=== PATIENT | male | born 1995 | race Caucasian/White ===

== ENCOUNTER 2016-12-09 20:15 | Emergency (ER) | payer BC ==
[2016-12-09 21:27] VITALS: BP 110/74
[2016-12-09] MEDS ORDERED: Oseltamivir CAP* 75 MG PO ONE (21:47)
--- NOTE | 2016-12-09 21:54 | UC ---
FLU HPI - HPI Summary HPI Summary: SECOND DAY OF FEVER COUGH BODYACHES. NO FLU SHOT. NO SORE THROAT. NO RASHES. NO ABDOMINAL PAIN. NO NAUSEA OR VOMITING - History of Current Complaint Chief Complaint: UCRespiratory Stated Complaint: FEVER Time Seen by Provider: 12/09/16 21:25 Hx Obtained From: Patient Onset/Duration: Sudden Onset, Lasting Days, Still Present Severity Currently: Mild Severity Initially: Mild Associated Signs & Symptoms: Positive: F/C, Myalgia, Cough - Allergy/Home Medications Allergies/Adverse Reactions: Allergies Allergy/AdvReac Type Severity Reaction Status Date / Time No Known Allergies Allergy Unverified 12/09/16 21:27 PMH/Surg Hx/FS Hx/Imm Hx Previously Healthy: Yes Endocrine History Of: Denies: Diabetes, Thyroid Disease Cardiovascular History Of: Denies: Cardiac Disorders, Hypertension Respiratory History Of: Reports: Asthma Denies: COPD GI/ History Of: Denies: Ulcer - Surgical History Surgical History: Yes Surgery Procedure, Year, and Place: 1999 Tonsillectomy - Family History Known Family History: Positive: Hypertension - Social History Occupation: Employed Full-time Lives: With Family Alcohol Use: None Substance Use Type: None Smoking Status (MU): Never Smoked Tobacco - Immunization History Vaccination Up to Date: Yes Review of Systems Constitutional: Fever, Chills Skin: Negative Eyes: Negative ENT: Negative Respiratory: Cough Cardiovascular: Negative Gastrointestinal: Negative Genitourinary: Negative Motor: Negative Neurovascular: Negative Musculoskeletal: Arthralgia, Myalgia Neurological: Negative Psychological: Negative All Other Systems Reviewed And Are Negative: Yes Physical Exam Triage Information Reviewed: Yes Appearance: No Pain Distress, Well-Nourished, Ill-Appearing Vital Signs: Initial Vital Signs Temp 100.1 F 12/09/16 21:23 Pulse 73 12/09/16 21:23 Resp 18 12/09/16 21:23 BP 110/74 12/09/16 21:23 Pulse Ox 99 12/09/16 21:23 Vital Signs Reviewed: Yes Eye Exam: Normal ENT Exam: Normal ENT: Positive: Normal ENT inspection, Hearing grossly normal, Pharynx normal, TMs normal Dental Exam: Normal Neck exam: Normal Neck: Positive: Supple, Nontender, No Lymphadenopathy Respiratory Exam: Normal Respiratory: Positive: Chest non-tender, Lungs clear, Normal breath sounds, No respiratory distress, No accessory muscle use Cardiovascular Exam: Normal Cardiovascular: Positive: RRR, No Murmur, Pulses Normal Abdominal Exam: Normal Abdomen Description: Positive: Nontender, No Organomegaly Musculoskeletal Exam: Normal Neurological Exam: Normal Psychological Exam: Normal Skin Exam: Normal Flu Course/Dx - Differential Dx/Diagnosis Differential Diagnosis/HQI/PQRI: Influenza Provider Diagnoses: INFLUENZA Discharge - Discharge Plan Condition: Stable Disposition: HOME Prescriptions: Oseltamivir CAP* [Tamiflu CAP*] 75 mg PO BID #10 cap Patient Education Materials: Influenza (ED) Referrals: Jack Varela MD [Primary Care Provider] -
== END 2016-12-09 21:58 | disposition home or self-care (01) ==
LOC: UCEAST 20:15
DX: J11.1 Influenza due to unidentified influenza virus with other respiratory manifestations (principal)
CPT/HCPCS: 87502; 99212; A9270-GY; G0463

== ENCOUNTER 2017-04-24 21:20 | Emergency (ER) | payer BC ==
[2017-04-24 21:31] VITALS: BP 114/78
--- NOTE | 2017-04-24 21:59 | RAD ---
INDICATION: Right hand injury COMPARISON: April 29, 2016 TECHNIQUE: AP, lateral, and oblique views were obtained. FINDINGS: The bony structures, joint spaces, and soft tissues are normal for age. IMPRESSION: NO ACUTE FRACTURE.
--- NOTE | 2017-04-24 22:29 | UC ---
Hand/Wrist HPI - HPI Summary HPI Summary: PT PUNCHED HIS TRUCK TODAY WITH CLOSED FIST AND THEN AGAIN WITH OPEN PALM. HAS ABRASION TO PALM, PAIN 4TH AND 5TH FINGERS AND PAIN WITH MOVEMENT. HAS BRUISING TO FOREARM. UP TO DATE VACCINATIONS. - History Of Current Complaint Chief Complaint: UCLaceration Stated Complaint: HAND INJURY AND LAC Hx Obtained From: Patient, Family/Industrial Paramedic - SISTER AND GF Onset/Duration: Sudden Onset, Lasting Hours, Still Present Severity Initially: Moderate Severity Currently: Moderate Pain Intensity: 4 Pain Scale Used: 0-10 Numeric Character Of Pain: Sharp, Aching Aggravating Factor(s): Movement Alleviating: Rest Associated Signs And Symptoms: Positive: Swelling, Bruising Related History: Dominant Hand Right - Allergies/Home Medications Allergies/Adverse Reactions: Allergies Allergy/AdvReac Type Severity Reaction Status Date / Time No Known Allergies Allergy Unverified 12/09/16 21:27 Home Medications: Home Medications Ibuprofen [Advil] 400 mg PO 04/24/17 [History] PMH/Surg Hx/FS Hx/Imm Hx Respiratory History: Asthma - Surgical History Surgical History: Yes Surgery Procedure, Year, and Place: 1999 Tonsillectomy - Family History Known Family History: Positive: Hypertension - Social History Alcohol Use: Occasionally Substance Use Type: None Smoking Status (MU): Smoker, Current Status Unknown - Immunization History Vaccination Up to Date: Yes Review of Systems Constitutional: Negative Skin: Bruising, Other - ABRASION Respiratory: Negative Cardiovascular: Negative Gastrointestinal: Negative Musculoskeletal: Arthralgia, Decreased ROM, Edema All Other Systems Reviewed And Are Negative: Yes Physical Exam Triage Information Reviewed: Yes Appearance: Well-Appearing, No Pain Distress, Well-Nourished Vital Signs: Initial Vital Signs Temp 98.0 F 04/24/17 21:21 Pulse 46 04/24/17 21:21 Resp 18 04/24/17 21:21 BP 114/78 04/24/17 21:21 Pulse Ox 98 04/24/17 21:21 Vital Signs Reviewed: Yes Eyes: Positive: Conjunctiva Clear ENT: Positive: Hearing grossly normal Neck: Positive: Supple Respiratory: Positive: No respiratory distress, No accessory muscle use Cardiovascular: Positive: Pulses Normal Abdomen Description: Positive: Soft Musculoskeletal: Positive: ROM Limited @ - RIGHT HAND, Edema @ - MINIMAL EDEMA RIGHT HAND Neurological: Positive: Alert Psychological: Positive: Normal Response To Family, Age Appropriate Behavior Skin: Positive: Other - ABRASION RIGHT PALM Diagnostics - Radiology RIGHT HAND XRAY Xray Interpretation: No Acute Changes Radiology Interpretation Completed By: Radiologist Hand/Wrist Course/Dx - Course Course Of Treatment: SPOKE TO DR. ANDERSON (RADIOLOGY) AND CONFIRMED NEGATIVE READ. PT DECLINES BURKE WRAP. ENCOURAGED TO USE BURKE DURING SLEEP AND WITH ACTIVITY FOR PROTECTION AND SUPPORT. OTC MEDS NEEDED FOR DISCOMFORT. FOLLOW- UP WITH PCP OR ORTHO IF NOT IMPROVING EXPECTED. - Differential Dx/Diagnosis Provider Diagnoses: 1. RIGHT HAND CONTUSION. 2. RIGHT HAND ABRASION Discharge - Discharge Plan Condition: Stable Disposition: HOME Patient Education Materials: Contusion in Adults (ED), Abrasion (ED) Referrals: Jack Varela MD [Primary Care Provider] - If Needed Mitzi Tomlinson MD [Medical Doctor] - If Needed Additional Instructions: XRAY TODAY NEGATIVE FOR FRACTURE OR DISLOCATION PER RADIOLOGY READ. CONTUSION: Your injury has resulted in a contusion -- a crushing of the deep tissues. No injury to important structures was detected during the physician's exam. Contusions vary in the amount of pain they cause, and in the length of time required for healing. Typically, the area will become bruised, and will remain painful to touch for two or three weeks. However, most patients are back to working and playing within a few days. After the initial period of rest and cold-packs, your symptoms (together with the doctor's recommendations) will determine how rapidly you can get back to full activity. Usually this means "do what feels okay, but don't do things that hurt." If re-examination was recommended, it's important to follow up as instructed. Call the doctor or return any time if pain increases, if swelling becomes severe, if you develop numbness or weakness in an injured extremity, or if any other alarming symptoms occur. ABRASIONS: An abrasion is a scraping injury of the skin. Some scarring may result. The seriousness of an abrasion is not always obvious at first. Hidden tissue damage may be present and infection may occur despite proper care. Complete healing may take from ten days to as long as a month. The healing time depends on the depth of the abrasion, and on the amount of crushing of underlying tissues from the injury. Keep the wound and dressing clean. Do not shower or bathe the area until okayed by the doctor. If the dressing gets wet, remove it and blot the wound dry, then reapply a clean dressing. Dressings should be changed every day. Sunscreen should be used for six months after the skin is healed. If any signs of infection occur (swelling, redness, increasing tenderness, red streaks, profuse purulent drainage from the abrasion, tender lumps in the armpit or groin above the abrasion, or fever), see the doctor immediately. IF YOUR SYMPTOMS DO NOT IMPROVE EXPECTED OVER THE NEXT 1-2 WEEKS FOLLOW-UP WITH ORTHO.
== END 2017-04-24 22:40 | disposition home or self-care (01) ==
LOC: UCEAST 21:20
DX: Z72.0 Tobacco use (principal); S60.511A Abrasion of right hand, initial encounter; W22.8XXA Striking against or struck by other objects, initial encounter; Y93.9 Activity, unspecified; Y92.9 Unspecified place or not applicable; Y99.9 Unspecified external cause status
CPT/HCPCS: 99211; G0463

== ENCOUNTER 2017-05-17 22:23 | Emergency (ER) | payer BC ==
[2017-05-18] MEDS ORDERED: cefTRIAXone VIAL(*) 250 MG VIAL IM ONE (00:34)
[2017-05-18] MEDS ORDERED: DOXYcycline CAP(*) 100 MG PO ONE (00:35)
[2017-05-18 01:53] VITALS: BP 114/80
--- NOTE | 2017-05-18 03:30 | ED ---
Leila Ley Rebecca, scribed for Broderick Spaulding MD on 05/17/17 at 2321 . GI/ HPI - HPI Summary HPI Summary: Pt is a 21 y/o M who presents to ED c/o L testicular pain. Pain began suddenly at 2100 tonight while doing dishes and has been constant since onset. Pain is currently moderate, ranked 6/10. Sx aggravated by palpation and contraction, alleviated by standing up. Denies lumps in the groin, penile discharge, difficulty urinating, vomiting and back pain. 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 Occur "every once in awhile" and they usually spontaneously alleviated in a half an hour, but this time it is not resolved. Has never seen a urologist. - History of Current Complaint Chief Complaint: EDGeneral Time Seen by Provider: 05/17/17 23:20 Stated Complaint: TESTICULAR PAIN Hx Obtained From: Patient Onset/Duration: Started Hours Ago, Still Present Timing: Constant Current Severity: Moderate Pain Intensity: 6 Additional Locations for Males: Testicles Associated Signs and Symptoms: Positive: Negative. Negative: Vomiting Additional Signs & Symptoms: Negative: Penile Discharge Aggravating Factor(s): Palpation Alleviating Factor(s): Position - Standing - Allergy/Home Medications Allergies/Adverse Reactions: Allergies Allergy/AdvReac Type Severity Reaction Status Date / Time No Known Allergies Allergy Unverified 12/09/16 21:27 PMH/Surg Hx/FS Hx/Imm Hx Endocrine/Hematology History: Denies: Hx Diabetes, Hx Thyroid Disease Cardiovascular History: Denies: Hx Hypertension Respiratory History: Reports: Hx Asthma Denies: Hx Chronic Obstructive Pulmonary Disease (COPD) GI History: Denies: Hx Ulcer History: Reports: Other Problems/Disorders - Hx testicular torsion - Surgical History Surgery Procedure, Year, and Place: 1999 Tonsillectomy Infectious Disease History: No Infectious Disease History: Denies: Hx Hepatitis, Hx Human Immunodeficiency Virus (HIV), Traveled Outside the [place] in Last 30 Days - Family History Known Family History: Positive: Hypertension - Social History Alcohol Use: None Substance Use Type: Reports: None Smoking Status (MU): Never Smoked Tobacco Review of Systems Negative: Vomiting Positive: other - L testicular pain; Negative lumps in the groin, penile discharge and difficulty urinating Positive: Other - Denies back pain All Other Systems Reviewed And Are Negative: Yes Physical Exam - Summary Physical Exam Summary: The patient is well-nourished in no acute distress and in no acute pain. The skin is warm and dry and skin color reflects adequate perfusion. HEENT: The head is normocephalic and atraumatic. The pupils are equal and reactive. The conjunctivae are clear and without drainage. Nares are patent and without drainage. Mouth reveals moist mucous membranes and the throat is without erythema and exudate. The external ears are intact. The ear canals are patent and without drainage. The tympanic membranes are intact. Neck is supple with full range of motion and non-tender. There are no carotid bruits. There is no neck vein distension. Respiratory: Chest is non-tender. Lungs are clear to auscultation and breath sounds are symmetrical and equal. Cardiovascular: Hear is regular rate and rhythm. There is no murmur or rub auscultated. There is no peripheral edema and pulses are symmetrical and equal. Abdomen: The abdomen is soft and non-tender. There are normal bowel sounds heard in all four quadrants and there is no organomegaly palpated. Genital: Bilateral inguinal adenopathy. Circumcised. R testicle is descended and nontender. L testicle is tender in the epididymis. Feels like he possibly has a hernia or hydrocele in the testicle. Normal color and texture. Not high riding. Musculoskeletal: There is no back pain noted. Extremities are non-tender with full range of motion. Neurological: Patient is alert and oriented to person, place and time. The patient has symmetrical motor strength in all four extremities. Cranial nerves are grossly intact. Deep tendon reflexes are symmetrical and equal in all four extremities. Psychiatric: The patient has an appropriate affect and does not exhibit any anxiety or depression. Triage Information Reviewed: Yes Vital Signs On Initial Exam: Initial Vitals Temp Pulse Resp BP Pulse Ox 98.7 F 87 18 115/81 97 05/17/17 22:27 05/17/17 22:27 05/17/17 22:27 05/17/17 22:27 05/17/17 22:27 Vital Signs Reviewed: Yes Diagnostics - Vital Signs Vital Signs Temp Pulse Resp BP Pulse Ox 05/17/17 22:47 98.7 F 87 16 115/81 100 05/17/17 22:27 98.7 F 87 18 115/81 97 - Laboratory Lab Statement: Any lab studies that have been ordered have been reviewed, and results considered in the medical decision making process. - Ultrasound No standard instances Ultrasound Interpretation: Positive (See Comments) - Tesitcular US: Mild left epididymitis. Small right hydrocele. Mild bilateral microlithiasis. Suggest six- month followup exam to ensure stability. Ultrasound Interpretation Completed By: Radiologist Re-Evaluation - Re-Evaluation First Eval Re-Evaluation Time: 00:32 Comment: Discussed US results with the pt. GIGU Course/Dx - Course Assessment/Plan: Pt is a 21 y/o M who presents to ED c/o sudden onset L testicular pain since 2100 tonight. Sx aggravated by palpation and contraction, alleviated by standing up. Denies lumps in the groin, penile discharge, difficulty urinating, vomiting and back pain. 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 Occur "every once in awhile" and they usually spontaneously alleviated in a half an hour, but this time it is not resolved. Has never seen a urologist.Testicular US reveals "Tesitcular US: Mild left epididymitis. Small right hydrocele. Mild bilateral microlithiasis." In the ED course, he receivied Rocephin and Vibramycin. He will be D/C to home with Dx of L epididymitis and Rx for Doxycycline 100 mg BID for 10 days. He understands and agrees. - Diagnoses Differential Diagnoses - Male: Epididymitis, STD, Testicular Torsion, Urinary Tract Infection Provider Diagnoses: Left epididymitis Discharge - Discharge Plan Condition: Stable Disposition: HOME Prescriptions: DOXYcycline CAP(*) [DOXYcycline 100MG CAP(*)] 100 mg PO BID #20 cap Patient Education Materials: Epididymitis (ED) Referrals: [facility] [place] PHYSICIAN REFERRAL [Outside] - 3 Days The documentation as recorded by the Leila luis Rebecca accurately reflects the service I personally performed and the decisions made by me, Broderick Spaulding MD.
--- NOTE | 2017-05-18 07:40 | RAD ---
INDICATION: Left ventricular pain. COMPARISON: There are no prior studies available for comparison. TECHNIQUE: Multiple real-time images of the testicles were obtained including color Doppler images and Doppler tracings. FINDINGS: The testicles are normal in size and shape. There are bilateral scattered microcalcifications. The right testicle measured 4.8 x 2.8 x 3.2 cm and the left testicle measured 4.4 x 2.5 x 2.5 cm. No intratesticular mass is seen. There is symmetric vascular flow within both testicles. The left epididymis is mildly enlarged and heterogeneous with increased blood flow suggestive of epididymitis. There appears be a small left varicocele. IMPRESSION: 1. FINDINGS MOST CONSISTENT WITH LEFT EPIDIDYMITIS. 2. SMALL LEFT VARICOCELE. 3. BILATERAL TESTICULAR MICROLITHIASIS.
== END 2017-05-18 01:03 | disposition home or self-care (01) ==
LOC: ED 22:23
DX: N45.1 Epididymitis (principal); J45.909 Unspecified asthma, uncomplicated
CPT/HCPCS: 76870; 96372; 99282; A9270-GY; J0696

== ENCOUNTER → 2017-05-29 13:46 | Emergency (ER) | payer BC ==
[~2017-05-29 13:46] MED LIST: Ketorolac INJ* 30 MG/ML 1 ML VIAL IV ONE; Metoclopramide IV* 5 MG/ML 2 ML VIAL IV ONE; NS 0.9% 1000 ML* 2,000 ML IV ONE; Rizatriptan (NF) 5 MG TAB PO ONE; diPHENhydraMINE IV* 50 MG/ML 1 ml VIAL (BENADRYL) IV ONE; fentaNYL* 50 MCG/ML 2 ML VIAL (100 MCG VIAL) IV SLOW PU ONE
[2017-05-29 15:08] LABS: Hematocrit 43 % (42-52); Hemoglobin 14.4 g/dl (14.0-18.0); Mean Corpuscular HGB Conc 33 g/dl (31-36); Mean Corpuscular Hemoglobin 30 pg (27-31); Mean Corpuscular Volume 91 fL (80-94); Mean Platelet Volume 10 um3 (7.4-10.4); Red Blood Count 4.73 10^6/ul (4.0-5.4); Red Cell Distribution Width 13 % (10.5-15); White Blood Count 6.3 10^3/ul (3.5-10.8)
[2017-05-29 15:10] LABS: Urine Bilirubin Negative (Negative); Urine Glucose Negative (Negative); Urine Nitrite Negative (Negative)
[2017-05-29 15:19] LABS: Albumin 4.7 g/dL (3.2-5.2); BUN/Creatinine Ratio 15.4 (8-20); Calcium 9.5 mg/dL (8.6-10.3); EGFR African American 163.2 (>60); EGFR Non-African American 126.9 (>60); Globulin 2.4 g/dL (2-4); Potassium 3.6 mmol/L (3.5-5.0); Total Bilirubin 0.7 mg/dL (0.2-1.0); Total Protein 7.1 g/dL (6.4-8.9)
[2017-05-29 15:56] LABS: Erythrocyte Sed Rate 4 mm/Hr (0-14)
[2017-05-29 17:39] VITALS: BP 106/70
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
== END | disposition home or self-care (01) ==
LOC: ED 13:46
DX: G43.909 Migraine, unspecified, not intractable, without status migrainosus (principal); R20.0 Anesthesia of skin; H53.489 Generalized contraction of visual field, unspecified eye; J45.909 Unspecified asthma, uncomplicated
CPT/HCPCS: 36415; 80053; 81003; 82375; 85025; 85652; 96374; 96375; 99283; J1200; J1885; J2765; J3010

== ENCOUNTER 2017-06-08 01:35 | Emergency (ER) | payer BC ==
[2017-06-08] MEDS ORDERED: LORazepam INJ* 2 MG/ML 1 ML VIAL IV PUSH ONE (01:57)
[2017-06-08] MEDS ORDERED: Metoclopramide IV* 5 MG/ML 2 ML VIAL IV ONE (01:57)
[2017-06-08] MEDS ORDERED: NS 0.9% 1000 ML* 1,000 ML IV ONE ×2 (01:57→03:15)
[2017-06-08] MEDS ORDERED: diPHENhydraMINE IV* 50 MG/ML 1 ml VIAL (BENADRYL) IV ONE (01:57)
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
[2017-06-08] MEDS ORDERED: Morphine INJ* 2 MG/ML 1 ML SYRINGE IV ONE (03:15)
[2017-06-08 04:43] VITALS: BP 107/55
== END 2017-06-08 04:45 | disposition home or self-care (01) ==
LOC: ED 01:35
DX: R51 Headache (principal)
CPT/HCPCS: 96374; 96375; 99282; J1200; J2060; J2765

== ENCOUNTER 2017-07-09 18:30 | Inpatient (IN) | payer BC, OTHER ==
--- NOTE | 2017-07-09 19:30 | RAD ---
Indication: Right ankle injury. 3 views of the right ankle are reviewed. There is a lucency going obliquely from the medial malleolus extending to the tibial plafond as well as in the distal fibula although no soft tissue swelling is noted. Possibility of soft tissue injury should be considered. Underlying fracture is not totally excluded. IMPRESSION: Lucency in the distal fibula and the medial malleolus is noted however no adjacent soft tissue swelling is noted. This may be secondary to soft tissue laceration. A nondisplaced fracture is not totally excluded.
[2017-07-09] MEDS: Morphine INJ* 4 MG/ML 1 ML CARPUJECT IV ONE ×2 (19:31→20:32)
[2017-07-09] MEDS ORDERED: NS 0.9% 1000 ML* 1,000 ML IV ONE (19:32)
[2017-07-09] MEDS ORDERED: Ondansetron INJ* 2 MG/ML VIAL IV ONE (19:32)
[2017-07-09] MEDS ORDERED: ceFAZolin 1 GM VIAL(*) 1 GM in NS 0.9% 50 ML* 50 ML IVPB ONE (19:32)
[2017-07-09] MEDS ORDERED: ceFAZolin 1 GM* X ONE DOSE IVPB ×2 (20:00)
[2017-07-09] MEDS ORDERED: Morphine INJ* 4 MG/ML 1 ML CARPUJECT ONE (20:28)
[2017-07-09] MEDS ORDERED: Morphine INJ* 4 MG/ML 1 ML CARPUJECT IV ONE (20:32)
--- NOTE | 2017-07-09 21:05 | RAD ---
Indication: Right ankle injury. CT of the right ankle was obtained in the axial plane. Sagittal and coronal reconstructed images were obtained. The calcaneus and talus appears to be intact. There is a fracture of the medial malleolus extending from the medial metaphysis into the mid tibial plafond as well as a comminuted fracture of the distal fibula and lateral malleolus. Subcutaneous air is noted likely due to skin wound. There appears to be intra-articular air noted in the subtalar joint. No significant soft tissue edema is noted. IMPRESSION: Oblique fractures of the medial malleolus extending into the mid tibial plafond as well as a comminuted fracture of the distal fibula. Subcutaneous air is noted. Additionally air extends into the subtalar joint.
[2017-07-09] MEDS ORDERED: ceFAZolin 1 GM in Dextrose (*) 1 GM/50 ML BAG IVPB ONE (22:03)
[2017-07-09] MEDS ORDERED: Ketorolac INJ* 30 MG/ML 1 ML VIAL ONE (22:05)
[2017-07-09] MEDS ORDERED: Propofol* 10 MG/ML 20 ML BTL IV PUSH ONE (22:05)
[2017-07-09] MEDS ORDERED: fentaNYL* 50 MCG/ML 2 ML VIAL (100 MCG VIAL) ONE (22:05)
[2017-07-09] MEDS ORDERED: KETAMINE HCL* 50 MG/ML 10 ML VIAL ONE (22:05)
[2017-07-09] MEDS ORDERED: Lidocaine 2% PF * 5 ML VIAL ONE (22:05)
[2017-07-09] MEDS ORDERED: Ondansetron INJ* 2 MG/ML VIAL ONE (22:05)
[2017-07-09] MEDS ORDERED: Dexamethasone IV* 4 MG/ML 1 ML (4 MG) ONE (22:05)
[2017-07-09] MEDS ORDERED: Midazolam* 1 MG/ML 5 ML VIAL (5 MG) ONE (22:05)
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
[2017-07-09] MEDS ORDERED: HYDROmorphone INJ* 1 MG/ML CARPUJECT SYRINGE ONE (23:58)
[2017-07-09] MEDS ORDERED: fentaNYL* 50 MCG/ML 2 ML VIAL (100 MCG VIAL) IV PRN (23:59)
[2017-07-09] MEDS ORDERED: HYDROmorphone INJ* 1 MG/ML CARPUJECT SYRINGE IV PRN (23:59)
[2017-07-09] MEDS ORDERED: Ondansetron INJ* 2 MG/ML VIAL IV PRN (23:59)
[2017-07-10] MEDS ORDERED: fentaNYL* 50 MCG/ML 2 ML VIAL (100 MCG VIAL) ONE (00:12)
[2017-07-10] MEDS ORDERED: Bupivacaine 0.25% SDV* 30 ML ONE ×2 (00:37→00:40)
[2017-07-10] MEDS ORDERED: Magnesium Hydroxide LIQ* 30 ML UDC PO PRN (01:08)
[2017-07-10] MEDS ORDERED: Ondansetron INJ* 2 MG/ML VIAL IV PRN (01:08)
[2017-07-10] MEDS ORDERED: traZODone TAB* 50 MG TAB PO PRN (01:08)
[2017-07-10] MEDS ORDERED: oxyCODONE/Acetamin 5/325 MG* TAB PO PRN (01:08)
[2017-07-10] MEDS ORDERED: Polyethylene Glycol 3350* 17 GM PACKET PO PRN (01:08)
[2017-07-10] MEDS ORDERED: oxyCODONE TAB* 5 MG TAB PO PRN (01:08)
--- NOTE | 2017-07-10 01:22 | PN ---
Progress Note - Progress Note Date of Service: 07/10/17 SOAP: The patient is now S/P ORIF and washout of R ankle for tx of open fracture. He is admitted to the floor for 48 hours of abx. Usual abx protocol is not being followed due to increase risk of infection with an open fracture. Plan is to discharge to home after 48 hours of IV abx.
[2017-07-10] MEDS ORDERED: Rizatriptan 10 MG TAB PO PRN (02:00)
[2017-07-10] MEDS ORDERED: oxyCODONE/Acetamin 5/325 MG* TAB ONE (03:02)
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
[2017-07-10] MEDS: ceFAZolin 1 GM in Dextrose (*) 1 GM/50 ML BAG IVPB SCH ×3 (06:14→22:56)
[2017-07-10] MEDS ORDERED: ceFAZolin 1 GM VIAL(*) 1 GM in NS 0.9% 50 ML* 50 ML IVPB SCH (06:30)
[2017-07-10] MEDS: Acetaminophen TAB* 325 MG PO PRN ×2 (06:45→12:52)
[2017-07-10] MEDS: Enoxaparin(*) 40 MG/0.4 ML SYR SUBCUT SCH (11:37)
--- NOTE | 2017-07-10 14:26 | PN ---
Progress Note - Progress Note Date of Service: 07/10/17 SOAP: Subjective: [Pt is doing well. Pain is controlled. Denies CP/SOB or F/C Objective: 21 y/o WDWN M NAD, A&Ox3 RLE- splint cdi, able F/E toes, full ROM knee, SILT distally Vital Signs Temp Pulse Resp BP Pulse Ox 99.7 F 59 18 86/43 97 07/10/17 07:25 07/10/17 08:25 07/10/17 11:37 07/10/17 08:25 07/10/17 08:25 Assessment: POD 1 ORIF R ankle and washout for tx of open fracture Plan: cont IV abx x 48 hours post op TTWB RLE with use of crutches keep splint dry and intact DVT prophylaxis- lovenox DC IV fluids DC to home after abx complete, likely tu morning F/U 10-14 days post op, DC on ASA
--- NOTE | 2017-07-10 14:36 | RAD ---
INDICATION: ORIF RIGHT ankle. COMPARISON: July 09, 2017 radiographs. TECHNIQUE: 35 seconds fluoroscopy. FINDINGS: Spot images document placement of a medial cortical plate and multiple fixation screws across the medial malleolus fracture with resulting anatomic alignment. IMPRESSION: Procedural fluoroscopy. CPT II Codes: 6045F
[2017-07-10] MEDS ORDERED: Butalb/Acetamin/Caff TAB* 1 TAB PO PRN (16:04)
[2017-07-10] MEDS ORDERED: Ondansetron ODT TAB* 4 MG PO PRN (16:05)
[2017-07-10] MEDS: oxyCODONE/Acetamin 5/325 MG* TAB PO PRN ×2 (17:16→21:15)
[2017-07-10] MEDS: Verapamil TAB* 80 MG PO SCH (21:15)
[2017-07-10] MEDS: Morphine INJ* 2 MG/ML 1 ML SYRINGE (TWO MG - NEW SYRINGE VERSION) IV PRN (23:59)
[2017-07-11] MEDS: oxyCODONE/Acetamin 5/325 MG* TAB PO PRN ×5 (04:24→22:30)
[2017-07-11] MEDS: ceFAZolin 1 GM in Dextrose (*) 1 GM/50 ML BAG IVPB SCH ×3 (06:26→22:30)
[2017-07-11] MEDS: Morphine INJ* 2 MG/ML 1 ML SYRINGE (TWO MG - NEW SYRINGE VERSION) IV PRN ×3 (07:18→20:18)
[2017-07-11] MEDS: diPHENhydraMINE IV* 50 MG/ML 1 ml VIAL (BENADRYL) IV PRN ×2 (07:20→14:25)
[2017-07-11] MEDS: Verapamil TAB* 80 MG PO SCH ×3 (09:07→22:29)
--- NOTE | 2017-07-11 11:46 | PN ---
Progress Note - Progress Note Date of Service: 07/11/17 SOAP: Subjective: POD 2 ORIF R ankle and washout for tx of open fracture. Patient reports pain controlled with PO and morphine. Patient has no questions/ complaints. Objective: General- Well appearing, NAD AO -MSK- L LE: Surgical splint intact, no drainage, + E/F of toes without difficulty, cap refill <2 secs. sensation grossly intact. Active Medications Generic Name Dose Route Start Last Admin Trade Name Freq PRN Reason Stop Dose Admin Acetaminophen 650 mg 07/10/17 01:08 07/10/17 12:52 Tylenol Tab* PO 650 mg Q4H PRN Administration PAIN OR TEMPERATURE Acetaminophen/Butalbital/Caffeine 1 tab 07/10/17 16:04 Fioricet Tab* PO Q8HR PRN HEADACHE Diphenhydramine HCl 25 mg 07/10/17 01:08 07/11/17 07:20 Benadryl Iv* IV 25 mg Q6H PRN Administration itching Enoxaparin Sodium 40 mg 07/10/17 12:00 07/10/17 11:37 Lovenox(*) SUBCUT 40 mg Q24H DON Administration Cefazolin Sodium/Dextrose 1 gm in 50 mls @ 200 mls/hr 07/10/17 06:30 06:26 Kefzol 1 Gm In Dextrose Duplex (*) IVPB 07/11/17 22:44 200 mls/hr Q8H DON Administration Magnesium Hydroxide 30 ml 07/10/17 01:08 Milk Of Magnesia Liq* PO Q6H PRN constipation Morphine Sulfate 2 mg 07/10/17 01:08 07/11/17 11:04 Morphine Inj (Syringe)* IV 2 mg Q2H PRN Administration PAIN - SEVERE Ondansetron HCl 4 mg 07/10/17 01:08 Zofran Inj* IV Q6H PRN nausea Ondansetron HCl 4 mg 07/10/17 16:05 Zofran Odt Tab* PO Q6H PRN NAUSEA Oxycodone HCl 10 mg 07/10/17 01:08 07/10/17 11:37 Roxycodone Tab* PO 10 mg Q4H PRN Administration PAIN - MODERATE TO SEVERE Oxycodone/Acetaminophen 1 tab 07/10/17 01:08 Percocet 5/325 Tab* PO Q4H PRN PAIN Oxycodone/Acetaminophen 2 tab 07/10/17 01:08 07/11/17 09:06 Percocet 5/325 Tab* PO 2 tab Q4H PRN Administration PAIN Polyethylene Glycol/Electrolytes 17 gm 07/10/17 01:08 Miralax* PO DAILY PRN Constipation Rizatriptan Benzoate 10 mg 07/10/17 02:00 Maxalt-Cardiac Monitor (Nf) PO ONCE PRN MIGRAINE HEADACHE Protocol Trazodone HCl 25 mg 07/10/17 01:08 Desyrel Tab* PO BEDTIME PRN insomnia Verapamil HCl 80 mg 07/10/17 21:00 07/11/17 11:22 Calan Tab* PO Not Given BID DON Assessment: POD 2 ORIF R ankle and washout for tx of open fracture Plan: - Continue IV ABX for 48 hours total. - Continue PT/ OT - Pain management- discussed with patient decreasing IV pain medication throughout day and increasing PO if necessary Vital Signs Temp 97.6 F 07/11/17 11:02 Pulse 71 07/11/17 11:02 Resp 16 07/11/17 11:06 BP 98/55 07/11/17 11:02 Pulse Ox 98 07/11/17 11:02 Intake & Output 07/10/17 07/11/17 07/11/17 18:59 06:59 18:59 Intake Total 2273 1065 Output Total 1200 0 0 Balance 1073 1065 0 Intake: IV Fluids 1223 47 ABX - CEFAZOLIN 108 LR 1115 47 IVPB 58 ABX - CEFAZOLIN 58 Oral 1050 960 Output: Urine 1200 0 0 Other: Estimated Void Medium # Bowel Movements 0 # Voids 1 <Joycelyn Constantino - Last Filed: 07/11/17 11:44> - Progress Note SOAP: Doing well. IV antibiotics for 48 hours postop and then d/c home. <Velasquez Osman - Last Filed: 07/11/17 12:31>
[2017-07-11] MEDS: Enoxaparin(*) 40 MG/0.4 ML SYR SUBCUT SCH (12:24)
[2017-07-12] MEDS: oxyCODONE/Acetamin 5/325 MG* TAB PO PRN ×2 (06:13→12:01)
[2017-07-12 06:17] LABS: Hematocrit 36 % (42-52); Hemoglobin 11.9 g/dl (14.0-18.0); Mean Platelet Volume 10 um3 (7.4-10.4)
[2017-07-12 06:47] LABS: EGFR African American 165.6 (>60); EGFR Non-African American 128.8 (>60)
--- NOTE | 2017-07-12 08:17 | PN ---
Progress Note - Progress Note Date of Service: 07/12/17 SOAP: Subjective: The patient is doing well. Pain is controlled. Denies calf pain, CP/SOB or F/C. Objective: 21 y/o WDWN M NAD, A&Ox3, RLE- splint c/d/i, full pain free ROM of knee, sensation intact to light touch distally Vital Signs Temp Pulse Resp BP Pulse Ox 98.5 F 56 15 93/41 98 07/12/17 03:36 07/12/17 03:36 07/12/17 06:59 07/12/17 03:36 07/12/17 04:41 Laboratory Results - last 24 hr 07/12/17 07/12/17 05:29 05:29 Hgb 11.9 L Hct 36 L Plt Count 191 MPV 10 BUN 8 Creatinine 0.77 Est GFR ( Amer) 165.6 Est GFR (Non-Af Amer) 128.8 Assessment: POD 3 s/p ORIF right ankle and washout for treatment of open fx Plan: DC to home today, done with 48 hrs of IV abx TTWB with crutches Percocet for pain ASA for DVT propylaxis F/U with Dr. Osman 10-14 days post op
[2017-07-12] MEDS: Verapamil TAB* 80 MG PO SCH (08:45)
[2017-07-12 11:14] VITALS: BP 102/58
[2017-07-12] MEDS: Enoxaparin(*) 40 MG/0.4 ML SYR SUBCUT SCH (12:03)
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
== END 2017-07-12 13:15 | disposition home or self-care (01) | DRG 313 ==
LOC: ED 18:30 → OR 21:11 → SSU 07-10 02:45
PROVIDERS: ADMIT Orthopaedic Surgery Hand Surgery; ATTEND Orthopaedic Surgery Hand Surgery
PROC: 0QSG04Z Reposition Right Tibia with Internal Fixation Device, Open Approach (ICD-10-PCS; principal; 2017-07-10)
PROC: 0JBN0ZZ Excision of Right Lower Leg Subcutaneous Tissue and Fascia, Open Approach (ICD-10-PCS; 2017-07-10)
DX: S82.231B Displaced oblique fracture of shaft of right tibia, initial encounter for open fracture type I or II (principal); N44.00 Torsion of testis, unspecified; J45.909 Unspecified asthma, uncomplicated; S82.401B Unspecified fracture of shaft of right fibula, initial encounter for open fracture type I or II; G43.909 Migraine, unspecified, not intractable, without status migrainosus; Z82.49 Family history of ischemic heart disease and other diseases of the circulatory system; V29.88XA Motorcycle rider (driver) (passenger) injured in other specified transport accidents, initial encounter; Z72.89 Other problems related to lifestyle; Y92.9 Unspecified place or not applicable
CPT/HCPCS: 36415; 76001; 82565; 84520; 85014; 85018; 85049; A9270-GY; C1713; C1776; J0690; J1100; J1170; J1200; J1650; J1885; J2250; J2270; J2405; J2704; J3010

== ENCOUNTER 2017-09-23 11:33 | Emergency (ER) | payer BC ==
[2017-09-23] MEDS ORDERED: Metoclopramide IV* 5 MG/ML 2 ML VIAL IV ONE (12:02)
[2017-09-23] MEDS ORDERED: diPHENhydraMINE IV* 50 MG/ML 1 ml VIAL (BENADRYL) IV ONE (12:02)
[2017-09-23] MEDS ORDERED: Ketorolac INJ* 30 MG/ML 1 ML VIAL IV ONE (12:02)
[2017-09-23] MEDS ORDERED: NS 0.9% 1000 ML* 2,000 ML IV ONE (12:02)
[2017-09-23] MEDS ORDERED: Acetaminophen TAB* 325 MG PO ONE (12:02)
[2017-09-23 12:21] LABS: Hematocrit 40 % (42-52); Hemoglobin 13.7 g/dl (14.0-18.0); Mean Corpuscular HGB Conc 34 g/dl (31-36); Mean Corpuscular Hemoglobin 31 pg (27-31); Mean Corpuscular Volume 90 fL (80-94); Mean Platelet Volume 9 um3 (7.4-10.4); Red Blood Count 4.47 10^6/ul (4.0-5.4); Red Cell Distribution Width 13 % (10.5-15); White Blood Count 10.4 10^3/ul (3.5-10.8)
[2017-09-23 12:40] LABS: Albumin 4.6 g/dL (3.2-5.2); BUN/Creatinine Ratio 17.6 (8-20); Calcium 9.4 mg/dL (8.6-10.3); EGFR African American 171.7 (>60); EGFR Non-African American 133.5 (>60); Globulin 2.6 g/dL (2-4); Potassium 3.6 mmol/L (3.5-5.0); Total Bilirubin 0.4 mg/dL (0.2-1.0); Total Protein 7.2 g/dL (6.4-8.9)
[2017-09-23 14:24] LABS: Erythrocyte Sed Rate 7 mm/Hr (0-14)
[2017-09-23 15:59] VITALS: BP 98/55
--- NOTE | 2017-09-23 16:01 | CONSULT ---
Subjective Date of Service: 09/23/17 Interval History: Mr. Rodgers is a 22 yo male with PMH significant for migraines who is followed by neurology. Pt reports that he follows with Dr. Jensen with Neurology for his migraines and has an appointment in a few months. Migraine started at 0800 this AM and has associated symptoms of nausea, photophobia and phonaphobia. He reports not drinking or eating today due to being at work. He took his AM dose of Verapamil this AM. Denies fever, chills, lightheadedness or dizziness, shortness of breath, chest discomfort, V/D. Pt reports sore throat and runny nose with cough that started 3-4 days ago. Last migraine prior to this one was last week. While in the ED he received 2L NS, IV Benadryl, IV Reglan, Tylenol and Toradol. He was noted to be hypotensive with systolic BPs in the 80's. He was found to asymptomatic. The Hospitalists were asked to consult on the patient regarding his hypotension. Orthostatic VS where obtained. BP laying 91/76, sitting 90/48 , and standing 87/61. No complaints of lightheadedness or dizziness. His headache was improving. 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 Family History: Findings - Denies family HX CAD and Cancer. Reports DM in father and paternal side of family Social History: Findings - Denies tobacco or rec. drug use. Occational ETOH. Past Medical History: Findings - Migraines, HX pelvix fx, S/P tonsillectomy, S/ P release right foot compartment syndrome, S/P ORIF right ankle Review of Systems - Measurements Intake and Output: Intake and Output Last 24 Hours 09/21/17 09/22/17 09/23/17 09/24/17 06:59 06:59 06:59 06:59 Intake Total 1999 Balance 1999 Weight 130 lb Intake: IV Fluids 1999 - Review of Systems General Comments: Well nourished, NAD Dermatology: Positive: Normal HEENT: Positive: Normal Eyes: Positive: Normal Thyroid: Positive: Normal Pulmonary: Positive: Cough Negative: Shortness of Breath Cardiology: Positive: Normal Negative: Chest Pain, Shortness of Breath, Faintness, Syncope Gastroenterology: Positive: Normal, Nausea Negative: Abdominal Pain, Vomiting, Constipation Endocrinology: Positive: Normal Neurology: Positive: Migraines Negative: Dizziness Psychiatry: Positive: Normal Objective Additional Medications: Home Medications: 1. Zofran ODT 4 mg SL Q6H PRN nausea. 2. Verapamil 80 mg PO in AM and 160 mg in PM. 3. Motrin 600 mg PO Q6H PRN pain. 4. Fioricet 1 tab PO Q8H PRN migraine. Allergies: No known drug allergies Vital Signs 09/23/17 09/23/17 09/23/17 11:49 11:56 11:57 Temperature 98.9 F Pulse Rate 72 64 Respiratory 18 Rate Blood Pressure 108/72 109/55 (mmHg) O2 Sat by Pulse 98 98 Oximetry 09/23/17 09/23/17 09/23/17 12:00 12:30 13:00 Temperature Pulse Rate 60 56 62 Respiratory Rate Blood Pressure 98/56 82/39 (mmHg) O2 Sat by Pulse 98 99 97 Oximetry 09/23/17 09/23/17 09/23/17 13:30 14:00 14:30 Temperature Pulse Rate 62 55 56 Respiratory Rate Blood Pressure 89/37 81/35 84/26 (mmHg) O2 Sat by Pulse 97 98 97 Oximetry 09/23/17 14:42 Temperature Pulse Rate Respiratory Rate Blood Pressure 82/44 (mmHg) O2 Sat by Pulse Oximetry Oxygen Devices in Use Now: None Appearance: NAD, laying on stretcher Ears/Nose/Mouth/Throat: Mucous Membranes Moist Respiratory: Symmetrical Chest Expansion and Respiratory Effort, Clear to Auscultation Cardiovascular: NL Sounds; No Murmurs; No JVD, RRR Abdominal: NL Sounds; No Tenderness; No Distention Extremities: No Edema Skin: No Rash or Ulcers Neurological: Alert and Oriented x 3, NL Muscle Strength and Tone Lines/Tubes/Other Access: Clean, Dry and Intact Peripheral IV - site benign Nutrition: Taking PO's Result Diagrams: 09/23/17 12:11 09/23/17 12:11 Assessment/Plan - Billing Mr. Rodgers is 22 yo male with PMH significant for migraines who presented to the emergency room with complaints of a migraine and was found to be hypotensive. Plan By Medical Problem: 1. Hypotension. I suspect this is secondary to the Benadryl in received in the ED, in addition to the Verapamil he takes daily for his Migraines. He also reports not eating or drinking today. He is currently asymptomatic and is not orthostatic. He can be discharged to home from the ED. 2. Migraines. His headache is improving. I recommend that he follow-up with Dr. Jensen if he continues to have breakthrough headaches. VTE PPX: Ambulate Diet: Regular Code Status: Full code Admission Status and Rationale: Mr. Rodgers will be discharge to home from the Emergency Room, he has been encouraged to establish with a PCP. Attending: Seymour Galvez
--- NOTE | 2017-09-24 07:56 | ED ---
Abad Ley Angela, scribed for Dyllan Christina MD on 09/23/17 at 1203 . Headache - HPI Summary HPI Summary: This pt is a 22 y/o male accompanied by his mother [facility] [place] headache since this morning at 0800. He reports the last time he had this headache was last week. Pt additionally c/o nausea, photophobia, and phonophobia. He denies fever. Pt notes some cough and rhinorrhea. Pt has been sleeping well and eating well. He notes normal fluid intake. PMHx includes migraine. Pt takes Verapamil for migraines but notes it has not been working recently. Per mother, pt had recent surgery for a fractured right ankle. - History Of Current Complaint Chief Complaint: EDHeadache Stated Complaint: HEADACHE Time Seen by Provider: 09/23/17 11:57 Hx Obtained From: Patient Onset/Duration: Sudden Onset, Started hours ago, Still Present Timing: Hours Character: Migraine Associated Signs And Symptoms: Nausea, Other (Noted In Comments) - POS: photophobia, phonophobia. NEG: fever - Allergies/Home Medications Allergies/Adverse Reactions: Allergies Allergy/AdvReac Type Severity Reaction Status Date / Time No Known Allergies Allergy Verified 06/28/17 12:49 Home Medications: Home Medications Verapamil TAB* [Calan TAB*] 160 mg PO QPM 09/23/17 [History Confirmed 09/23/17] PMH/Surg Hx/FS Hx/Imm Hx Endocrine/Hematology History: Denies: Hx Diabetes, Hx Thyroid Disease Cardiovascular History: Denies: Hx Hypertension, Hx Pacemaker/ICD Respiratory History: Reports: Hx Asthma Denies: Hx Chronic Obstructive Pulmonary Disease (COPD) GI History: Denies: Hx Ulcer History: Reports: Other Problems/Disorders - Hx testicular torsion Sensory History: Denies: Hx Contacts or Glasses, Hx Hearing Aid Opthamlomology History: Denies: Hx Contacts or Glasses Neurological History: Reports: Hx Migraine Psychiatric History: Denies: Hx Panic Disorder - Surgical History Surgery Procedure, Year, and Place: 1999 Tonsillectomy;. RIGHT FOOT COMPARTMENT SYNDROME; Infectious Disease History: No Infectious Disease History: Denies: Hx Hepatitis, Hx Human Immunodeficiency Virus (HIV), Traveled Outside the [place] in Last 30 Days - Family History Known Family History: Positive: Hypertension, Diabetes - Social History Alcohol Use: Occasionally Substance Use Type: Reports: None Smoking Status (MU): Never Smoked Tobacco Review of Systems Negative: Fever, Chills Positive: Photophobia ENT: Other - phonophobia Positive: Nasal Discharge Positive: Cough Positive: Nausea Genitourinary: Negative Musculoskeletal: Negative Skin: Negative Positive: Headache All Other Systems Reviewed And Are Negative: Yes Physical Exam - Summary Physical Exam Summary: VITAL SIGNS: Reviewed. GENERAL: Patient is a well-developed and nourished male who is lying comfortable in the stretcher. Patient is not in any acute respiratory distress. HEAD AND FACE: No signs of trauma. No ecchymosis, hematomas or skull depressions. No sinus tenderness. EYES: PERRLA, EOMI x 2, No injected conjunctiva, no nystagmus. EARS: Hearing grossly intact. Ear canals and tympanic membranes are within normal limits. MOUTH: Oropharynx within normal limits. NECK: Supple, trachea is midline, no adenopathy, no JVD, no carotid bruit, no c- spine tenderness, neck with full ROM. CHEST: Symmetric, no tenderness at palpation LUNGS: Clear to auscultation bilaterally. No wheezing or crackles. CVS: Regular rate and rhythm, S1 and S2 present, no murmurs or gallops appreciated. ABDOMEN: Soft, non-tender. No signs of distention. No rebound no guarding, and no masses palpated. Bowel sounds are normal. EXTREMITIES: FROM in all major joints, no edema, no cyanosis or clubbing. NEURO: Alert and oriented x 3. No acute neurological deficits. Speech is normal and follows commands. SKIN: Dry and warm Triage Information Reviewed: Yes Vital Signs On Initial Exam: Initial Vitals Temp Pulse Resp BP Pulse Ox 98.9 F 72 18 108/72 98 09/23/17 11:49 09/23/17 11:49 09/23/17 11:49 09/23/17 11:49 09/23/17 11:49 Vital Signs Reviewed: Yes Diagnostics - Vital Signs Vital Signs Temp Pulse Resp BP Pulse Ox 09/23/17 11:49 98.9 F 72 18 108/72 98 - Laboratory Lab Results: Lab Results 09/23/17 09/23/17 09/23/17 Range/Units 12:11 12:11 12:28 WBC 10.4 (3.5-10.8) 10^3/ul RBC 4.47 (4.0-5.4) 10^6/ul Hgb 13.7 L (14.0-18.0) g/dl Hct 40 L (42-52) % MCV 90 (80-94) fL MCH 31 (27-31) pg MCHC 34 (31-36) g/dl RDW 13 (10.5-15) % Plt Count 275 (150-450) 10^3/ul MPV 9 (7.4-10.4) um3 Neut % (Auto) 73.2 (38-83) % Lymph % (Auto) 17.9 L (25-47) % [place] % (Auto) 7.9 (1-9) % Eos % (Auto) 0.4 (0-6) % Baso % (Auto) 0.6 (0-2) % Absolute Neuts (auto) 7.6 (1.5-7.7) 10^3/ul Absolute Lymphs (auto) 1.9 (1.0-4.8) 10^3/ul Absolute Monos (auto) 0.8 (0-0.8) 10^3/ul Absolute Eos (auto) 0 (0-0.6) 10^3/ul Absolute Basos (auto) 0.1 (0-0.2) 10^3/ul Absolute Nucleated RBC 0 10^3/ul Nucleated RBC % 0 ESR 7 (0-14) mm/Hr Carbon Monoxide Screen < 4 (<4.0) % Sodium 138 (133-145) mmol/L Potassium 3.6 (3.5-5.0) mmol/L Chloride 103 (101-111) mmol/L Carbon Dioxide 25 (22-32) mmol/L Anion Gap 10 (2-11) mmol/L BUN 13 (6-24) mg/dL Creatinine 0.74 (0.67-1.17) mg/dL Est GFR ( Amer) 171.7 (>60) Est GFR (Non-Af Amer) 133.5 (>60) BUN/Creatinine Ratio 17.6 (8-20) Glucose 88 (70-100) mg/dL Calcium 9.4 (8.6-10.3) mg/dL Total Bilirubin 0.40 (0.2-1.0) mg/dL AST 22 (13-39) U/L ALT 22 (7-52) U/L Alkaline Phosphatase 82 (34-104) U/L Total Protein 7.2 (6.4-8.9) g/dL Albumin 4.6 (3.2-5.2) g/dL Globulin 2.6 (2-4) g/dL Albumin/Globulin Ratio 1.8 (1-3) Result Diagrams: 09/23/17 12:11 09/23/17 12:11 Lab Statement: Any lab studies that have been ordered have been reviewed, and results considered in the medical decision making process. Headache Course/Dx - Course Assessment/Plan: This pt is a 22 y/o male accompanied by his mother [facility] [place] migraine headache since this morning at 0800. He reports the last time he had this headache was last week. Pt additionally c/o nausea, photophobia , and phonophobia. He denies fever. Pt notes some cough and rhinorrhea. Pt has been sleeping well and eating well. He notes normal fluid intake. PMHx includes migraine. Pt takes Verapamil for migraines but notes it has not been working recently. Per mother, pt had recent surgery for a fractured right ankle. Test results without any significant abnormalities. The pt was hypotensive; therefore the pt was given 2 liters of fluids. He was also given Tylenol, Benadryl, Toradol and Reglan and his headache resolved. Dr. Galvez, hospitalist and JOSE Lu consulted for the patient and they agree the pt can be discharge home with follow up from PCP. They report the pt s symptom of hypotension is probably related to the Benadryl. Pt is alert and oriented x3. Pt has no orthostatic hypotension and is asymptomatic. Therefore, he will be discharge home and will follow up with his PCP. - Diagnoses Differential Diagnosis/HQI/PQRI: Migraine, Sinus Headache, Tension Headache Provider Diagnoses: Migraine headache Discharge - Discharge Plan Condition: Stable Disposition: HOME Patient Education Materials: Migraine Headache (ED) Forms: *Work Release Referrals: [facility] PHYSICIAN REFERRAL [Outside] Additional Instructions: Please follow up with your primary care provider. If you do not have a primary, please establish one by calling the [facility] Physician Referral. RETURN TO THE ED FOR ANY WORSENING OR NEW SYMPTOMS. The documentation as recorded by the Abad luis Angela accurately reflects the service I personally performed and the decisions made by me, Dyllan Christina MD.
== END 2017-09-23 16:00 | disposition home or self-care (01) ==
LOC: ED 11:33
DX: G43.909 Migraine, unspecified, not intractable, without status migrainosus (principal)
CPT/HCPCS: 36415; 80053; 82375; 85025; 85652; 96360; 96374; 96375; 99283; A9270-GY; J1200; J1885; J2765

== ENCOUNTER 2018-05-09 13:57 | Emergency (ER) | payer BC, OTHER ==
[2018-05-09 14:13] VITALS: BP 109/67
--- NOTE | 2018-05-09 14:55 | UC ---
Abdominal Pain Male HPI - HPI Summary HPI Summary: 22 y/o male presents to the urgent care c/o upper epigastric pain since Tuesday morning. Pt reports he ate a pizza late at night on Tuesday. He had nausea all day Tuesday and 1 episode of vomiting at night time. Tuesday he didn't eat anything due to nausea, but was drinking fluids. He decided to take Peptobismol PO to alleviate symptoms w/o any improvement. Today he ate breakfast w/o any problems, But after luch today he vomited and epigastric pain returned. Pain is burning and 2/10 w/o any radiation. Normal BM. Pt denies fever,hematoemesis, recent travel, SOB, ROSALES, dizziness, chest pain, diarrhea. Pt is UTD w/ vaccines. - History of Current Complaint Chief Complaint: UCAbdominalPain Stated Complaint: ABD PAIN Time Seen by Provider: 05/09/18 14:53 Hx Obtained From: Patient Onset/Duration: Gradual Onset, Lasting Days - 3 days, Still Present, Worse Since - today Timing: Intermittent Episodes Lasting: Severity Initially: Mild Severity Currently: Mild Pain Intensity: 2 Pain Scale Used: 0-10 Numeric Location: Epigastric Radiates: No Character: Burning Aggravating Factor(s): Food Alleviating Factor(s): Rest Associated Signs And Symptoms: Positive: Decreased Appetite, Nausea, Vomiting. Negative: Diaphoresis, Fever, Cough, Chest Pain, Dizzy, Back Pain, Constipation , Blood in Stool, Urinary Symptoms, Diarrhea, Penile Discharge - Risk Factors Testicular Torsion: Negative Cardiac Risk Factors: Negative - Allergies/Home Medications Allergies/Adverse Reactions: Allergies Allergy/AdvReac Type Severity Reaction Status Date / Time No Known Allergies Allergy Verified 05/09/18 14:13 Home Medications: Home Medications Zonisamide 100 mg PO BEDTIME 05/09/18 [History Confirmed 05/09/18] PMH/Surg Hx/FS Hx/Imm Hx Previously Healthy: Yes Neurological History: Seizures Other Neurological History: ROSALES - Surgical History Surgical History: Yes Surgery Procedure, Year, and Place: 1999 Tonsillectomy;. RIGHT FOOT COMPARTMENT SYNDROME; - Family History Known Family History: Positive: Hypertension, Diabetes - Social History Occupation: Employed Full-time Lives: With Family Alcohol Use: Occasionally Substance Use Type: None Smoking Status (MU): Never Smoked Tobacco - Immunization History Most Recent Influenza Vaccination: never Most Recent Pneumonia Vaccination: never Vaccination Up to Date: Yes Review of Systems Constitutional: Negative Skin: Negative Eyes: Negative ENT: Negative Respiratory: Negative Cardiovascular: Negative Gastrointestinal: Abdominal Pain - epigastric, Vomiting, Nausea Genitourinary: Negative Motor: Negative Neurovascular: Negative Musculoskeletal: Negative Neurological: Negative Psychological: Negative Is Patient Immunocompromised?: No All Other Systems Reviewed And Are Negative: Yes Physical Exam - Summary Physical Exam Summary: Vital Signs Reviewed: Yes General:Patient is a well developed and nourished young male who is sitting comfortable in the examining table. Patient is not in any acute respiratory distress. Eyes: Positive: Conjunctiva Clear - PERRLA, EOMI, fundi grossly normal ENT: Positive: Normal ENT inspection, Hearing grossly normal, Pharynx normal, TMs normal Neck: Positive: Supple, Nontender, No Lymphadenopathy Respiratory: Positive: Chest non-tender, Lungs clear, Normal breath sounds, No respiratory distress Cardiovascular: Positive: RRR,S1 and S2 present, No Murmur, Pulses Normal, Brisk Capillary Refill Abdomen Description: Positive:Abd: Flat with no distention. No surface trauma, scars, incisions. hyperactive bowel sounds present in all four quadrants. tenderness on epeigastric area on deep palpation, no guarding, no rigidity to palpation. No masses palpated, no pulsation in epigastric area. No organomegaly. Negative Bru[place] signs. No periumbilical tenderness. No rebound in the lower quadrants. NT over McBurneys point. Good femoral pulses bilaterally. No hernia noted. No CVAT bilaterally Musculoskeletal: Positive: Strength Intact, ROM Intact, No Edema,FROM in all major joints, no edema, no cyanosis or clubbing. Neuro: Alert and oriented x 3. No acute neurological deficits. Speech is normal. Psychological: WNL Skin: Dry and warm Triage Information Reviewed: Yes Vital Signs: Initial Vital Signs Temp 98.7 F 05/09/18 14:07 Pulse 75 05/09/18 14:07 Resp 16 05/09/18 14:07 BP 109/67 05/09/18 14:07 Pulse Ox 98 05/09/18 14:07 Abd Pain Male Course/Dx - Course Course Of Treatment: 22 y/o male presents to the urgent care c/o upper epigastric pain since Tuesday morning. Pt reports he ate a pizza late at night on Saturday. He had nausea all day Tuesday and 1 episode of vomiting at night time. Tuesday he didn't eat anything due to nausea, but was drinking fluids. He decided to take Peptobismol PO to alleviate symptoms w/o any improvement. Today he ate breakfast w/o any problems, But after luch today he vomited and epigastric pain returned. Pain is burning and 2/10 w/o any radiation. Normal BM. Pt denies fever,hematoemesis, recent travel, SOB, ROSALES, dizziness, chest pain , diarrhea. Pt is UTD w/ vaccines.Hx obtained. Pt probably w/ GERD on examination.Pt given Zofran PO at the clinic to alleviate symptoms. Pt educated on diet modification and avoid NSAIDs for his ROSALES and Rx Omeprazole PO and Zofran as directed below. Also strongly advised to f/u w/ PCP for further management. D/C instructions explained. Pt understood and agreed w/ plan of care. Pt left clinic hemodynamically stable, ambulating. - Differential Dx/Clinical Impression Differential Diagnosis/HQI/PQRI: Constipation, Peptic Ulcer Disease, Renal Colic , Urinary Tract Infection, Other - gastroenteritis Provider Diagnoses: 1- Acute nausea and vomiting. 2-GERD Discharge - Sign-Out/Discharge Documenting (check all that apply): Patient Departure - D/C home - Discharge Plan Condition: Stable Disposition: HOME Prescriptions: Omeprazole CAP* [Prilosec CAP* 20 MG] 20 mg PO DAILY #30 narinder. Ondansetron ODT TAB* [Zofran 4 MG Odt TAB*] 4 mg PO Q6H PRN #12 tab.odt PRN Reason: nausea and vomiting Patient Education Materials: Gastroesophageal Reflux Disease (ED), Acute Nausea and Vomiting (ED) Forms: *Work Release Referrals: [facility] [facility] [place]Outside] - 2 Days Raymundo Zarate MD [Medical Doctor] - If Needed Additional Instructions: 1- Please take Omeprazole PO as directed to alleviate symptoms. Avoid spicy food , chocolates, citric fruits, tomato sauce, etc. Avoid long periods of time w/o eating. increase fluid and eat soft meals until symptoms improve. 2- Take Zofran PO as directed to alleviate symptoms of nausea and vomiting. Pleas eat soft meals and increase fluid intake and rest 3- If you develops severe abdominal pain, w/ severe vomiting despite medications please go to the ER, for further treatment. Otherwise f/u with your PCP or [facility] Dr Zarate in 1 week if not improvement of symptoms for further management - Billing Disposition and Condition Condition: STABLE Disposition: Home Attestation Statement User Type: Provider - I was available for consult. This patient was seen by the JOLIE. The patient was not presented to, seen by, or examined by me. -Tatiana
[2018-05-09] MEDS ORDERED: Ondansetron ODT TAB* 4 MG PO ONE (15:10)
== END 2018-05-09 15:40 | disposition home or self-care (01) ==
LOC: UCEAST 13:57
DX: K21.9 Gastro-esophageal reflux disease without esophagitis (principal); R11.2 Nausea with vomiting, unspecified
CPT/HCPCS: 99212; A9270-GY; G0463

== ENCOUNTER 2018-06-29 08:05 | Day surgery (SDC) | payer BC ==
[~2018-06-29 08:05] MED LIST changes: +Buffered Lidocaine 0.9% SYRIN* 5 ML/SYR SYRINGE INTRADERM ONE; -Ketorolac INJ* 30 MG/ML 1 ML VIAL IV ONE; -Metoclopramide IV* 5 MG/ML 2 ML VIAL IV ONE; -NS 0.9% 1000 ML* 2,000 ML IV ONE; -Rizatriptan (NF) 5 MG TAB PO ONE; -diPHENhydraMINE IV* 50 MG/ML 1 ml VIAL (BENADRYL) IV ONE; -fentaNYL* 50 MCG/ML 2 ML VIAL (100 MCG VIAL) IV SLOW PU ONE
[2018-06-29] MEDS ORDERED: ceFAZolin 2 GM PREMIX in ORs 2 GM/50 ML BAG IVPB ONE (08:17)
[2018-06-29] MEDS ORDERED: Dexamethasone IV* 4 MG/ML 1 ML (4 MG) IV SLOW PU ONE (08:44)
[2018-06-29] MEDS ORDERED: Dexamethasone IV* 4 MG/ML 1 ML (4 MG) ONE (08:44)
[2018-06-29] MEDS ORDERED: Ketorolac INJ* 30 MG/ML 1 ML VIAL IV PRN (08:52)
[2018-06-29] MEDS ORDERED: Naloxone* 0.4 MG/ML 1 ML VIAL IV PRN (08:52)
[2018-06-29] MEDS ORDERED: HYDROcodone/ACETAMIN 5-325 MG* 1 TAB PO PRN (08:52)
[2018-06-29] MEDS ORDERED: DiMENhydriNATE IV* 50 MG/ML VIAL IV PUSH PRN (08:52)
[2018-06-29] MEDS ORDERED: fentaNYL* 50 MCG/ML 2 ML VIAL (100 MCG VIAL) ONE ×2 (09:50→11:27)
[2018-06-29] MEDS ORDERED: Midazolam* 1 MG/ML 2 ML VIAL (2 MG) ONE (09:51)
[2018-06-29] MEDS ORDERED: Ondansetron INJ* 2 MG/ML VIAL ONE (09:54)
[2018-06-29] MEDS ORDERED: Propofol* 10 MG/ML 20 ML BTL IV PUSH ONE (09:54)
[2018-06-29] MEDS ORDERED: ROPIVACAINE 5 MG/ML 30 ML BTL (0.5%) ONE (09:56)
[2018-06-29] MEDS ORDERED: Ketorolac INJ* 30 MG/ML 1 ML VIAL ONE (11:27)
[2018-06-29] MEDS: fentaNYL* 50 MCG/ML 2 ML VIAL (100 MCG VIAL) IV PRN ×2 (11:30→11:35)
[2018-06-29] MEDS ORDERED: oxyCODONE/Acetamin 5/325 MG* TAB ONE (11:45)
[2018-06-29] MEDS: oxyCODONE/Acetamin 5/325 MG* TAB PO PRN ×2 (11:46→11:47)
[2018-06-29 12:17] VITALS: BP 113/62
--- NOTE | 2018-06-30 15:31 | RAD ---
CPT II Codes: G9500 INDICATION: History of right ankle ORIF TECHNIQUE: Intraoperative fluoroscopy was provided during removal of right ankle hardware. FINDINGS: 3 spot films depict anatomic alignment of the right ankle without metallic hardware visualized.. Fluoroscopy time: 54 seconds IMPRESSION: As above.
--- NOTE | 2018-07-07 08:30 | OP ---
Operative Report - Blank - Operative Report Date of Operation: 06/29/18 Note: Provider: Velasquez Osman MD DATE OF OPERATION: 06/29/18 - [facility] DATE OF : 1995 SURGEON: Velasquez Osman MD. REMEDIATION CONSULTANT: JOSE Fernando ANESTHESIOLOGIST: Dr. Guidry ANESTHESIA: General PRE-OP DIAGNOSIS: Symptomatic right medial ankle plate and screws. POST-OP DIAGNOSIS: Symptomatic right medial ankle plate and screws. OPERATIVE PROCEDURE: Removal of right medial ankle plate and screws. INDICATIONS: Marco A has a symptomatic right medial ankle plate and screws. We talked about treatment options and the patient wanted to proceed with removal of hardware. He understands the risk of ankle instability, refracture, and neurovascular injury. ESTIMATED BLOOD LOSS: 2 mL. COMPLICATIONS: None. FINDINGS: As expected. DESCRIPTION OF PROCEDURE: Marco A was seen in the preoperative holding area. The correct side, site, and procedure were identified. We came back to the operating room. The leg was prepped and draped in the usual fashion. Time-out was performed. The leg was exsanguinated with the Esmarch and the tourniquet was inflated to 300 mmHg. I reopened the prior incision. Dissection was carried down to the hardware. The bovie and the scalpel were used to release the soft tissue off the plate. The hardware was removed in its entirety including the two medial malleolar screws. The bony edges were removed with the rongeur until it was smoothed down to flush edges. I placed a couple of figure of eight sutures in the deltoid ligament. The area was irrigated and the skin was closed with 3-0 monocryl. The wound was dressed with soft dressings, tourniquet deflated, and the patient was taken to the recovery room in stable condition.
== END 2018-06-29 12:40 | disposition home or self-care (01) ==
LOC: OREAST 08:05
PROVIDERS: ATTEND Orthopaedic Surgery Hand Surgery
DX: T84.84XA Pain due to internal orthopedic prosthetic devices, implants and grafts, initial encounter (principal); Y83.1 Surgical operation with implant of artificial internal device as the cause of abnormal reaction of the patient, or of later complication, without mention of misadventure at the time of the procedure; J45.909 Unspecified asthma, uncomplicated; S82.301E Unspecified fracture of lower end of right tibia, subsequent encounter for open fracture type I or II with routine healing; Y92.9 Unspecified place or not applicable; X58.XXXD Exposure to other specified factors, subsequent encounter
CPT/HCPCS: 76000; 88300; A9270-GY; J0690; J1100; J1885; J2250; J2405; J2704; J2795; J3010

== ENCOUNTER → 2018-12-14 11:41 | Emergency (ER) | payer BC ==
[~2018-12-14 11:41] MED LIST changes: -Buffered Lidocaine 0.9% SYRIN* 5 ML/SYR SYRINGE INTRADERM ONE; +Ondansetron ODT TAB* 4 MG PO ONE
[2018-12-14 13:13] VITALS: BP 121/72
== END | disposition left against medical advice (07) ==
LOC: ED 11:41
DX: H53.9 Unspecified visual disturbance (principal); Z53.21 Procedure and treatment not carried out due to patient leaving prior to being seen by health care provider
CPT/HCPCS: A9270-GY

== ENCOUNTER 2019-02-24 04:15 | Emergency (ER) | payer BC ==
--- NOTE | 2019-02-24 04:45 | ED ---
Head Injury - HPI Summary HPI Summary: This patient is a 23 year old male presenting to [facility] accompanied by mother with a chief complaint of headache and rib pain since around 0030. Patient states that he tripped over his own feet in the bathroom and hit his head. Patient denies LOC and neck pain. Patient states that the lower left ribs are also causing him pain. The pain is only located in the left side, not the right side. The pain is rated 4/10 in severity. Symptoms aggravated by deep breaths. Symptoms alleviated by nothing. Patient additionally reports mild headache. Patient denies nausea. - History Of Current Complaint Chief Complaint: EDHeadache Stated Complaint: ABD PAIN/HEADACHE PER PT Time Seen by Provider: 02/24/19 04:37 Hx Obtained From: Patient Mechanism Of Injury: Fall From A Standing Position Onset/Duration: Started Hours Ago, Still Present Onset of Pain: Immediate Severity Currently: Mild Pain Intensity: 4 Pain Scale Used: 0-10 Numeric Location of Head Injury: Frontal Aggravating Factor(s): Other: - deep breaths (for rib pain) Associated Signs And Symptoms: Negative - nausea, neck pain, LOC, Other: - rib pain - Allergies/Home Medications Allergies/Adverse Reactions: Allergies Allergy/AdvReac Type Severity Reaction Status Date / Time No Known Allergies Allergy Verified 02/24/19 04:19 PMH/Surg Hx/FS Hx/Imm Hx Previously Healthy: Yes Endocrine/Hematology History: Denies: Hx Diabetes, Hx Thyroid Disease Cardiovascular History: Denies: Hx Hypertension, Hx Pacemaker/ICD Respiratory History: Reports: Hx Asthma - sports induced Denies: Hx Chronic Obstructive Pulmonary Disease (COPD) GI History: Reports: Hx Ulcer - healed History: Denies: Other Problems/Disorders Sensory History: Denies: Hx Contacts or Glasses, Hx Hearing Aid Opthamlomology History: Denies: Hx Contacts or Glasses Neurological History: Reports: Hx Headaches, Hx Migraine Psychiatric History: Denies: Hx Panic Disorder - Cancer History Hx Chemotherapy: No - Surgical History Surgery Procedure, Year, and Place: 1999 Tonsillectomy;. RIGHT FOOT COMPARTMENT SYNDROME; 2012. I&D of skin, right ankle fracture, skin subcutaneous 06/2017 Hx Anesthesia Reactions: No Infectious Disease History: No Infectious Disease History: Denies: Hx Hepatitis, Hx Human Immunodeficiency Virus (HIV), Traveled Outside the [place] in Last 30 Days - Family History Known Family History: Positive: Hypertension, Diabetes - Social History Lives: With Family Alcohol Use: Rare Hx Substance Use: No Substance Use Type: Reports: None Hx Tobacco Use: No Smoking Status (MU): Never Smoked Tobacco Review of Systems Negative: Fever Negative: Nausea Neurological: Negative - neck pain, LOC Positive: Headache All Other Systems Reviewed And Are Negative: Yes Physical Exam - Summary Physical Exam Summary: Appearance: Well-appearing, Well-nourished, lying in bed comfortably Skin: Warm, dry, no obvious rash Eyes: sclera anicteric, no conjunctival pallor ENT: mucous membranes moist, pharynx appears normal Neck: Supple, nontender Respiratory: Clear to auscultation, no signs of respiratory distress Cardiovascular: Normal S1, S2. No murmurs. Normal distal pulses in tibial and radial bilaterally. Abdomen: Soft, nontender, normal active bowel sounds present Musculoskeletal: Normal, Strength/ROM Intact. Focal tenderness on left lower chest wall, but no point tenderness. Neurological: A&Ox3, awake and alert, mentation is normal, speech is fluent and appropriate Psychiatric: affect is normal, does not appear anxious or depressed Triage Information Reviewed: Yes Vital Signs On Initial Exam: Initial Vitals Temp Pulse Resp BP Pulse Ox 99.9 F 100 18 99/77 98 02/24/19 04:16 02/24/19 04:16 02/24/19 04:16 02/24/19 04:16 02/24/19 04:16 Vital Signs Reviewed: Yes Diagnostics - Vital Signs Vital Signs Temp Pulse Resp BP Pulse Ox 02/24/19 04:16 99.9 F 100 18 99/77 98 - Laboratory Lab Statement: Any lab studies that have been ordered have been reviewed, and results considered in the medical decision making process. - Radiology CXR Radiology Interpretation Completed By: ED Physician Summary of Radiographic Findings: CXR reveals, per ED physician, No acute process. Pending official report. Head Injury Course/Dx Course Of Treatment: This patient is a 23 year old male presenting to [facility] accompanied by mother with a chief complaint of headache and rib pain since around 0030. Patient states that he tripped over his own feet in the bathroom and hit his head. Patient denies LOC and neck pain. Patient states that the lower left ribs are also causing him pain. The pain is only located in the left side, not the right side. CXR reveals, per ED physician, No acute process. Pending official report. Patient will be discharged with a dx of chest wall contusion, scalp contusion. Patient is advised to follow up with PCP in 3 days. The patient is agreeable with this plan. - Diagnoses Provider Diagnoses: Chest wall contusion, Scalp contusion Discharge - Sign-Out/Discharge Documenting (check all that apply): Patient Departure Patient Received Moderate/Deep Sedation with Procedure: No - Discharge Plan Condition: Good Disposition: HOME Patient Education Materials: Head Injury (ED), Rib Contusion (ED) Referrals: [facility] [Outside] - If Needed No Primary Care Phys,NOPCP [Primary Care Provider] - Additional Instructions: I expect you to be sore through the weekend but start to feel better by Tuesday. If you are getting much worse, or you develop shortness of breath, we should see you back here. - Billing Disposition and Condition Condition: GOOD Disposition: Home - Attestation Statements Document Initiated by Danicae: Yes Documenting Scribe: Pradip Rizzo Provider For Whom Saige is Documenting (Include Credential): Yuan Hope MD Scribe Attestation: IPradip, scribed for Yuan Hope MD on 02/24/19 at 0631. Scribe Documentation Reviewed: Yes Provider Attestation: The documentation as recorded by the Pradip luis accurately reflects the service I personally performed and the decisions made by me, Yuan Hope MD Status of Scribe Document: Viewed
[2019-02-24 05:24] VITALS: BP 106/61
== END 2019-02-24 05:26 | disposition home or self-care (01) ==
LOC: ED 04:15
DX: S20.212A Contusion of left front wall of thorax, initial encounter (principal); S00.03XA Contusion of scalp, initial encounter; W01.0XXA Fall on same level from slipping, tripping and stumbling without subsequent striking against object, initial encounter; Y92.002 Bathroom of unspecified non-institutional (private) residence as the place of occurrence of the external cause
CPT/HCPCS: 99282

== ENCOUNTER 2019-12-05 06:36 | Emergency (ER) | payer BC ==
[2019-12-05 06:42] VITALS: BP 129/89
--- OUTSIDE RECORDS SUMMARY | 2019-12-05 06:49 | XMS REPORT | Continuity of Care Document ---
:1995 External Reference #:[id number] Author Name Jaydon Jensen MD (transmitted by agent of provider Shae Mckay) Address [address], [place] [address] Problems Active Problems Provider Date Migraine with typical aura Jaydon Jensen MD Onset: 06/21/2017 Hemiplegic migraine Jaydon Jensen MD Onset: 06/21/2017 Open fracture of ankle Velasquez Osman MD Onset: 07/20/2017 Social History Type Date Description Comments Sex Unknown ETOH Use Rarely consumes alcohol Tobacco Use Start: Unknown Patient has never smoked Recreational Drug Use Never Used Drugs Smoking Status Reviewed: 11/23/19 Patient has never smoked Allergies, Adverse Reactions, Alerts Description No Known Drug Allergies Medications Active Medications SIG Qnty Indications Ordering Provider Date Zonisamide 3 pills by mouth 90caps G43.109 Jaydon Jensen MD 12/14/2018 50mg in the am Capsules Hydrocodone-Acetamino 1 or 2 tabs by 30tabs Velasquez Osman MD 06/30/2018 phen mouth every 6-8 5-325mg Tablets hours as needed for pain Immunizations Description No Information Available Vital Signs Date Vital Result Comment 11/23/2019 11:47am Height 71 inches 5'11" Weight 141.00 lb Heart Rate 66 /min BP Systolic 114 mmHg BP Diastolic 64 mmHg BMI (Body Mass Index) 19.7 kg/m2 12/14/2018 2:23pm Height 71 inches 5'11" Weight 136.50 lb Heart Rate 74 /min BP Systolic 112 mmHg BP Diastolic 66 mmHg BMI (Body Mass Index) 19.0 kg/m2 Results Description No Information Available Procedures Description No Information Available Medical Devices Description No Information Available Encounters Type Date Location Provider Dx Diagnosis Office Visit 11/23/2019 [facility] Jaydon Jensen, G43.109 Migraine with 11:[facility] aura, not intractable, w/o status migrainosus Assessments Date Code Description Provider 11/23/2019 G43.109 Migraine with aura, not intractable, without Jaydon Jensen MD status migraino Plan of Treatment 11/23/2019 - Jaydon Jensen MDG43.109 Migraine with aura, not intractable, without status migrainoComments:Migraines well controlled by zonegran and has been fairly quiet for a long time and discussed that he may be able to go off zonegran without a change in headache pattern- it is possible headaches will flare alternatively and is impossible to determine without a trial. Beginning two months before nextappt he will go to 2 pills at night for 3 weeks then 1 pill at night for 3 weeks then stopFollow up:1 year Functional Status Description No Information Available Mental Status Description No Information Available Referrals Description No Information Available
--- NOTE | 2019-12-05 07:29 | ED ---
Throat Pain/Nasal Congestion - HPI Summary HPI Summary: This patient is a 24 years old male presenting to [facility] with chief complaint of sore throat since 2 days ago. He reports cough. He states the cough is dry. He denies fever, nausea, vomiting, diarrhea. He states everyone at his job has a similar illness but nobody else has seen a physician. He states he has taken Advil and it has helped. He has a Hx of Tonsillectomy. He states he went to an urgent care yesterday and was negative for strep. Medications reviewed, allergies noted. - History of Current Complaint Chief Complaint: EDThroatPain Time Seen by Provider: 12/05/19 07:17 Hx Obtained From: Patient Onset/Duration: Lasting Days - Allergies/Home Medications Allergies/Adverse Reactions: Allergies Allergy/AdvReac Type Severity Reaction Status Date / Time No Known Allergies Allergy Verified 12/05/19 06:39 PMH/Surg Hx/FS Hx/Imm Hx Endocrine/Hematology History: Denies: Hx Diabetes, Hx Thyroid Disease Cardiovascular History: Denies: Hx Hypertension, Hx Pacemaker/ICD Respiratory History: Reports: Hx Asthma - sports induced Denies: Hx Chronic Obstructive Pulmonary Disease (COPD) GI History: Reports: Hx Ulcer - healed History: Denies: Other Problems/Disorders Sensory History: Denies: Hx Contacts or Glasses, Hx Hearing Aid Opthamlomology History: Denies: Hx Contacts or Glasses Neurological History: Reports: Hx Headaches, Hx Migraine Psychiatric History: Denies: Hx Panic Disorder - Cancer History Hx Chemotherapy: No - Surgical History Surgery Procedure, Year, and Place: 1999 Tonsillectomy;. RIGHT FOOT COMPARTMENT SYNDROME; 2012. I&D of skin, right ankle fracture, skin subcutaneous 06/2017 Hx Anesthesia Reactions: No Infectious Disease History: No Infectious Disease History: Denies: Hx Hepatitis, Hx Human Immunodeficiency Virus (HIV), Traveled Outside the [place] in Last 30 Days - Family History Known Family History: Positive: Hypertension, Diabetes - Social History Alcohol Use: Rare Hx Substance Use: No Substance Use Type: Reports: None Hx Tobacco Use: No Smoking Status (MU): Never Smoked Tobacco Review of Systems Negative: Fever Positive: Sore Throat Positive: Cough Negative: Vomiting, Diarrhea, Nausea All Other Systems Reviewed And Are Negative: Yes Physical Exam - Summary Physical Exam Summary: Constitutional: Well-developed, Well-nourished, Alert. (-) Distressed Skin: Warm, Dry HENT: Normocephalic; Atraumatic Eyes: Conjunctiva normal Neck: Musculoskeletal ROM normal neck. (-) JVD, (-) Stridor, (-) Tracheal deviation Cardio: Rhythm regular, rate normal, Heart sounds normal; Intact distal pulses; The pedal pulses are 2+ and symmetric. Radial pulses are 2+ and symmetric. (-) Murmur Pulmonary/Chest wall: Effort normal. (-) Respiratory distress, (-) Wheezes, (-) Rales Abd: Soft, (-) tenderness, (-) Distension, (-) Guarding, (-) Rebound Musculoskeletal: (-) Edema Lymph: (-) Cervical adenopathy Neuro: Alert, Oriented x3 Psych: Mood and affect Normal Triage Information Reviewed: Yes Vital Signs On Initial Exam: Initial Vitals Temp Pulse Resp BP Pulse Ox 98.8 F 61 18 129/89 98 12/05/19 06:39 12/05/19 06:39 12/05/19 06:39 12/05/19 06:39 12/05/19 06:39 Vital Signs Reviewed: Yes Procedures - Sedation Patient Received Moderate/Deep Sedation with Procedure: No Diagnostics - Vital Signs Vital Signs Temp Pulse Resp BP Pulse Ox 12/05/19 06:39 98.8 F 61 18 129/89 98 - Laboratory Lab Statement: Any lab studies that have been ordered have been reviewed, and results considered in the medical decision making process. EENT Course/Dx - Course Course Of Treatment: Patient is here with sore throat and cough since Tuesday morning. Patient is outside of the influenza treatment window so a swab was not performed. Patient is overall very well-appearing with a normal cardiac, lung, throat exam. Patient does not have strep throat per exam. Patient is likely suffering from a viral syndrome and will be treated symptomatically treatment including Tessalon - Diagnoses Provider Diagnoses: Cough, Sore throat Discharge ED - Sign-Out/Discharge Documenting (check all that apply): Patient Departure - Discharge - Discharge Plan Condition: Stable Disposition: HOME Prescriptions: Benzonatate CAP* [Tessalon 100 MG CAP*] 100 mg PO TID #20 cap Patient Education Materials: Cold Symptoms (ED) Referrals: [facility] [Outside] Additional Instructions: Drink warm tea with honey for the cough. Take Motrin and Tylenol for pain. Return to ED if experiencing fevers, trouble breathing, you cannot swallow or any other concerning symptoms. Follow up with your primary care provider in 1-3 days. - Billing Disposition and Condition Condition: STABLE Disposition: Home - Attestation Statements Document Initiated by Saige: Yes Documenting Scribe: Velasquez Lin Provider For Whom Saige is Documenting (Include Credential): Christopher Banda MD Scribe Attestation: IVelasquez, scribed for Christopher Banda MD on 12/05/19 at 1122. Scribe Documentation Reviewed: Yes Provider Attestation: The documentation as recorded by the Velasquez luis accurately reflects the service I personally performed and the decisions made by me, Christopher Banda MD Status of Scribe Document: Viewed
[2019-12-05] MEDS ORDERED: Benzonatate CAP* 100 MG PO ONE (07:32)
== END 2019-12-05 07:39 | disposition home or self-care (01) ==
LOC: ED 06:36
DX: J02.9 Acute pharyngitis, unspecified (principal); R05 Cough
CPT/HCPCS: 99282; A9270-GY